=== PATIENT | female | born 1995 | race African-American/Black ===

== ENCOUNTER 2022-05-31 12:32 | Emergency (ER) | payer BC, SELFPAY ==
[2022-05-31 14:08] VITALS: BP 154/108; PULSE 133; RESP 16; TEMP 36.4; O2SAT 99; BMI 20.3
[2022-05-31 14:13] VITALS: BP 140/102
--- NOTE | 2022-05-31 14:24 | ECG_ITS ---
Test Reason : tachy Blood Pressure : / mmHG Vent. Rate : 113 BPM Atrial Rate : 113 BPM P-R Int : 124 ms QRS Dur : 072 ms QT Int : 320 ms P-R-T Axes : 074 065 039 degrees QTc Int : 438 ms Sinus tachycardia Right atrial enlargement Borderline ECG No previous ECGs available Referred By: Wicho Rizvi Electronically Signed By:MIKE CHAKRABORTY MD
[2022-05-31 14:37] LABS: MANUAL DIFF FLAG NO
[2022-05-31 14:41] LABS: Basophils Absolute Auto 0.1 X10*3/uL (0.0-0.2); Basophils Percent Auto 0.9 % (0-2); Eosinophils Percent Auto 0.1 % (0-4); Hematocrit 44.7 % (37.0-47.0); Hemoglobin 15.8 g/dl (12.0-16.0); Imm Gran Abs Auto 0.03 X10*3/uL (0.00-0.03); Imm Gran Pct Auto 0.4 % (0.0-0.4); Lymphocytes Absolute Auto 1.3 X10*3/uL (1.2-4.9); Lymphocytes Percent Auto 15.5 % (20-40); Mean Corpuscular HGB Conc 35.3 g/dl (31.0-35.0); Mean Corpuscular Hemoglobin 32.1 pg (27.0-33.0); Mean Corpuscular Volume 90.9 fL (80.0-98.0); Mean Platelet Volume 10.6 fL (9.4-12.3); Monocytes Absolute Auto 0.4 X10*3/uL (0.1-1.2); Monocytes Percent Auto 4.4 % (2-11); Neutrophils Absolute Auto 6.5 x10*3/uL (2.0-8.3); Neutrophils Percent Auto 78.7 % (45-73); Platelet Count 259 X10*3/uL (160-400); Red Blood Count 4.92 X10*6/uL (4.20-5.50); Red Cell Distribution Width 13.2 % (11.0-16.0); White Blood Count 8.2 X10*3/uL (4.8-10.8)
[2022-05-31 14:52] LABS: COVID-19 Test Negative (Negative); IDNOW Serial# 16C4AD1C
[2022-05-31 14:58] LABS: Alanine Aminotransferase 13 U/L (0-31); Alkaline Phosphatase 43 U/L (39-117); Anion Gap 17 (12-20); Aspartate Amino Transferase 21 U/L (5-31); Bilirubin Direct 0.2 mg/dL (0.0-0.5); Bilirubin Total 0.8 mg/dL (0.0-1.0); Blood Urea Nitrogen 13 mg/dL (9-16); Calcium 9.9 mg/dL (8.4-10.2); Carbon Dioxide 20 mmol/L (22-29); Chloride 104 mmol/L (96-108); Creatinine Clr Calc Pharmacy 104.1; Estimated Glomerular Filt Rate > 60; Ethanol < 10 mg/dL; Glucose Random 78 mg/dL (60-115); Lipase 9 U/L (8-78); Potassium 3.9 mmol/L (3.3-5.1); Sodium 137 mmol/L (135-145); Total Protein 8.3 g/dL (6.5-8.0)
--- NOTE | 2022-05-31 17:15 | ED_ITS ---
HPI - Arrhythmia/Palpitations General Chief Complaint: Arrhythmia/Palpitations Stated Complaint: dehydration Time Seen by Provider: 05/31/22 17:11 Source: patient Mode of arrival: ambulatory Limitations: no limitations History of Present Illness HPI narrative: Patient history of alcohol abuse drinks vodka almost every day [facility] for having palpitation last drink was yesterday heart rate was 140 at urgent care center feels slightly dizzy no chest pain fever no chills no urinary complaints patient is not eating or drinking much feel depressed no suicidal ideation Related Data Allergies Allergy/AdvReac Type Severity Reaction Status Date / Time No Known Allergies Allergy Verified 05/31/22 14:08 Review of Systems Review of Systems: Yes all other systems are reviewed and are negative Physical Exam Vital Signs: Vital Signs: Last Vital Signs Temp 97.6 F 05/31/22 14:08 Pulse 104 H 05/31/22 20:28 Resp 18 05/31/22 20:28 BP 145/105 H 05/31/22 20:28 Pulse Ox 100 05/31/22 20:28 O2 Del Method 05/31/22 20:28 BMI result Body Mass Index 20.3 Appearance: Alert. Oriented X3. No acute distress. Anxious Eyes: PERRLA, No Nystagmus ENT: Pharynx normal. Oral Mucosa moist Neck: Normal inspection. Neck supple. CVS: Sinus tachycardia no murmur/rubs/gallops. Pulses normal. Respiratory: No respiratory distress. Equal air entry bilateral, no wh eezing/rales/rhonchi Abdomen: Soft and nontender. Bowel sounds are present, no mass palpable, no CVA tenderness Skin: Skin warm and dry. Normal skin color. Normal skin turgor. Extremities: No lower extremity edema. No calf tenderness Neuro: Oriented X 3. No motor deficit. Medications Administered Discontinued Medications Generic Name Dose Route Start Last Admin Trade Name Freq PRN Reason Stop Dose Admin Sodium Chloride 1,000 mls @ 999 mls/hr 05/31/22 19:07 05/31/22 21:51 Ns IV 05/31/22 20:07 Infused .Q1H1M ONE Infusion Lorazepam 1 mg 05/31/22 20:56 05/31/22 21:36 Lorazepam 1 Mg Tablet PO 05/31/22 20:57 1 mg ONCE ONE Administration Medical Decision Making Medical Decision Making MDM Narrative: Patient's anxiety with alcohol use likely withdrawal improved after Ativan and IV fluids spoke to professional athletes coach about detox as outpatient Lab Data MDM Lab Attestation statement: I reviewed the patient's lab results. 05/31/22 14:27 05/31/22 14:27 Labs: Lab Results 05/31/22 05/31/22 05/31/22 Range/Units 14:27 14:27 14:27 WBC 8.2 (4.8-10.8) X10*3/uL RBC 4.92 (4.20-5.50) X10*6/uL Hgb 15.8 (12.0-16.0) g/dl Hct 44.7 (37.0-47.0) % MCV 90.9 (80.0-98.0) fL MCH 32.1 (27.0-33.0) pg MCHC 35.3 H (31.0-35.0) g/dl RDW 13.2 (11.0-16.0) % Plt Count 259 (160-400) X10*3/uL MPV 10.6 (9.4-12.3) fL Immature Gran % (Auto) 0.4 (0.0-0.4) % Neut % (Auto) 78.7 H (45-73) % Lymph % (Auto) 15.5 L (20-40) % [place] % (Auto) 4.4 (2-11) % Eos % (Auto) 0.1 (0-4) % Baso % (Auto) 0.9 (0-2) % Lymph # (Auto) 1.3 (1.2-4.9) X10*3/uL [place] # (Auto) 0.4 (0.1-1.2) X10*3/uL Eos # (Auto) 0.0 (0.0-0.4) X10*3/uL Baso # (Auto) 0.1 (0.0-0.2) X10*3/uL Abs Immat Gran (auto) 0.03 (0.00-0.03) X10*3/uL Absolute Neuts (auto) 6.5 (2.0-8.3) x10*3/uL Absolute Nucleated RBC 0.000 (0.0-0.012) X10*3/uL Nucleated RBC % (auto) 0.0 (0.0-0.2) /100WBC Sodium 137 (135-145) mmol/L Potassium 3.9 (3.3-5.1) mmol/L Chloride 104 (96-108) mmol/L Carbon Dioxide 20 L (22-29) mmol/L Anion Gap 17 (12-20) BUN 13 (9-16) mg/dL Creatinine 0.68 (0.5-1.4) mg/dL Estim Creat Clear Calc 104.1 Estimated GFR > 60 Random Glucose 78 (60-115) mg/dL Calcium 9.9 (8.4-10.2) mg/dL Total Bilirubin 0.8 (0.0-1.0) mg/dL Direct Bilirubin 0.2 (0.0-0.5) mg/dL AST 21 (5-31) U/L ALT 13 (0-31) U/L Alkaline Phosphatase 43 (39-117) U/L Total Protein 8.3 H (6.5-8.0) g/dL Albumin 5.0 (3.5-5.0) g/dL Lipase 9 (8-78) U/L Ethyl Alcohol < 10 mg/dL COVID-19 ([facility]) Negative (Negative) COVID-19 Clin Com See Note Independent Interpretation I performed an independent interpretation of an: EKG Interpretation: Said tachycardia heart rate 130 beats per minute normal interval normal axis no acute ST T wave changes no acute ischemic Discharge Plan Discharge Clinical Impression: Sinus tachycardia, Alcohol abuse Patient Disposition: Home, Self-Care Instructions: Alcohol Use Disorder (ED), Tachycardia (ED) Additional Instructions: Drink plenty of fluids Stop drinking alcohol Follow up with detox Stand Alone Forms: Work/School Release Interventions: ED Discharge Assessment Last Done: 05/31/22 21:52 Discharge Date/Time: 05/31/22 21:53
[2022-05-31] MEDS: 0.9 % Sodium Chloride 1,000 ML 999 ML IV (19:58)
[2022-05-31 20:28] VITALS: BP 145/105; PULSE 104; RESP 18; O2SAT 100
--- NOTE | 2022-05-31 20:43 | MHC.RECOVSUP ---
? Reason for consult:ETOH o? Current location:[address]? o? Identified substance use concern:? -? Support ? Intervention: o? Community resources provided o? Harm reduction discussion ? Plan:Pt asked for recovery resources ? Additional information:Pt is seeking resources for Alcoholism, she says she doesn't really know much about recovery so [facility] provided her with pamphlets for and [facility].
[2022-05-31] MEDS: LORazepam 1 MG TABLET PO (21:36)
== END 2022-05-31 21:53 | disposition home or self-care (01) ==
PROVIDERS: Emergency Provider Internal Medicine
DX: R00.2 Palpitations (principal); R00.0 Tachycardia, unspecified; F10.10 Alcohol abuse, uncomplicated; Y90.9 Presence of alcohol in blood, level not specified; Z20.828 Contact with and (suspected) exposure to other viral communicable diseases; Z20.822 Contact with and (suspected) exposure to COVID-19; Z79.899 Other long term (current) drug therapy
CPT/HCPCS: 36415; 80048; 80076; 82077; 83690; 85025; 87635; 93005; 96360; 96361; 99284